=== PATIENT | male | born 1980 | race Caucasian/White ===

== ENCOUNTER 2021-06-28 18:10 | Emergency (ER) | payer SELFPAY ==
[2021-06-28] MEDS ORDERED: Ketorolac Tromethamine 30 MG/ML VIAL ONE (19:07)
[2021-06-28] MEDS ORDERED: Morphine 4 MG/ML VIAL ONE (19:07)
[2021-06-28] MEDS ORDERED: Diazepam 10 MG/2 ML SYRINGE ONE (19:08)
[2021-06-28] MEDS ORDERED: Diazepam 5 MG TAB ONE (19:11)
== END 2021-06-28 20:24 | disposition home or self-care (01) ==
LOC: CSHERS 18:10
DX: M54.50 Low back pain, unspecified (principal); F17.200 Nicotine dependence, unspecified, uncomplicated
CPT/HCPCS: 96372; 99283; J1885; J2270; J3360

== ENCOUNTER 2024-07-12 08:29 | Outpatient (CLI) | payer BC | END 2024-07-12 08:30 | disposition home or self-care (01) | LOC: CSHSLEEP 08:29 | PROVIDERS: ATTEND Family Medicine | DX: G47.33 Obstructive sleep apnea (adult) (pediatric) (principal); R53.83 Other fatigue; R06.83 Snoring | CPT/HCPCS: 95800 ==

== ENCOUNTER 2024-09-17 08:41 | Outpatient (CLI) | payer BC | END 2024-09-17 08:42 | disposition home or self-care (01) | LOC: CSHSLEEP 08:41 | PROVIDERS: ATTEND Family Medicine | DX: G47.33 Obstructive sleep apnea (adult) (pediatric) (principal); G47.61 Periodic limb movement disorder | CPT/HCPCS: 95811 ==